=== PATIENT | female | born 1945 ===

== ENCOUNTER → 2016-09-10 | Outpatient (CLI) | payer OTHER | LOC: BHCLAF 09:15 | PROVIDERS: ATTEND Internal Medicine Cardiovascular Disease | DX: I34.0 Nonrheumatic mitral (valve) insufficiency (principal); M35.3 Polymyalgia rheumatica; Z79.899 Other long term (current) drug therapy; E03.9 Hypothyroidism, unspecified; E78.5 Hyperlipidemia, unspecified; R53.82 Chronic fatigue, unspecified; Z51.81 Encounter for therapeutic drug level monitoring | CPT/HCPCS: 93306-PO ==

== ENCOUNTER → 2017-03-10 | Outpatient (CLI) | payer OTHER | LOC: BRMIMAGING 14:31 | PROVIDERS: ATTEND Internal Medicine | DX: Z12.31 Encounter for screening mammogram for malignant neoplasm of breast (principal); Z80.3 Family history of malignant neoplasm of breast | CPT/HCPCS: G0202 ==

== ENCOUNTER → 2017-09-16 | Outpatient (CLI) | payer OTHER | LOC: BHCLAF 10:45 | PROVIDERS: ATTEND Internal Medicine Cardiovascular Disease | DX: I05.9 Rheumatic mitral valve disease, unspecified (principal) | CPT/HCPCS: 93306-PO ==

== ENCOUNTER → 2018-03-13 | Outpatient (CLI) | payer OTHER | LOC: BRMIMAGING 10:52 | PROVIDERS: ATTEND Internal Medicine | DX: Z12.31 Encounter for screening mammogram for malignant neoplasm of breast (principal); Z80.3 Family history of malignant neoplasm of breast ==